=== PATIENT | female | born 1980 | race Hispanic/Latino ===

== ENCOUNTER 2018-01-17 19:29 | Emergency (ER) | payer OTHER ==
[~2018-01-17] VITALS: Ht 154.9 cm; Wt 78.1 kg
[2018-01-17] MEDS ORDERED: ONDANSETRON HCL INJ 2 MG/ML VIAL IV STA (21:19)
[2018-01-17] MEDS ORDERED: MORPHINE SULFATE 2 MG/ML SYR IV STA (21:19)
[2018-01-17] MEDS ORDERED: IOPAMIDOL 300MG/ML 100 ML INFUS..BTL IV ONE (21:30)
[2018-01-18 00:33] VITALS: BP 120/76
== END 2018-01-17 23:30 | disposition home or self-care (01) ==
LOC: FSED 19:29
DX: R10.31 Right lower quadrant pain (principal); N20.0 Calculus of kidney; R11.0 Nausea
CPT/HCPCS: 99284; J2270; J2405; Q9967

== ENCOUNTER 2018-11-22 07:45 | Emergency (ER) | payer OTHER ==
[~2018-11-22] VITALS: Ht 154.9 cm; Wt 77.1 kg
[2018-11-22] MEDS ORDERED: IBUPROFEN 200 MG TAB PO STA (07:51)
--- NOTE | 2018-11-22 08:16 | Diagnostic Imaging Report ---
Radiographs of the right ankle - 2 views HISTORY: Pain COMPARISON: None available. FINDINGS: Bones: No acute displaced fracture. Nonaggressive appearing area of increased density/calcification along the distal lateral shaft of the tibia. Osseous alignment is within normal limits. Joints: Scattered degenerative change. No osseous erosion. Soft tissues: The soft tissues appear unremarkable. IMPRESSION: Scattered degenerative change. No osseous erosion. Signed by: Dr. Radames Landon M.D. on 11/22/2018 8:13 AM
== END 2018-11-22 08:31 | disposition home or self-care (01) ==
LOC: FSED 07:45
DX: S93.431A Sprain of tibiofibular ligament of right ankle, initial encounter (principal); X50.1XXA Overexertion from prolonged static or awkward postures, initial encounter; Y92.008 Other place in unspecified non-institutional (private) residence as the place of occurrence of the external cause
CPT/HCPCS: 99283

== ENCOUNTER 2019-05-29 10:00 | Outpatient (RCR) | payer OTHER | END 2019-05-31 | LOC: PT 10:00 | PROVIDERS: ATTEND Specialist | DX: M75.41 Impingement syndrome of right shoulder (principal) ==